=== PATIENT | male | born 1985 | race African-American/Black ===

== ENCOUNTER 2024-09-15 09:15 | Emergency (ER) | payer BC, MEDICAID ==
[~2024-09-15] VITALS: Ht 193 cm; Wt 89.5 kg
[2024-09-15 09:35] VITALS: BP 115/82; PULSE 99; RESP 18; TEMP 99; O2SAT 97
--- NOTE | 2024-09-15 10:01 | DVH ---
CLINICAL INFORMATION: 39 years old, Male; fall injury. TECHNIQUE: 3 views of the left elbow were obtained. COMPARISON: None FINDINGS: No acute fracture or dislocation. Chronic appearing ossific density along the volar aspect of the capitellum measuring up to 1.4 cm. Mild arthritic changes. There is ill-defined calcificati on distal to the medial epicondyle, may be dystrophic calcification or sequela of prior soft tissue i njury. No significant joint effusion. IMPRESSION: 1. No evidence of acute bony abnormality. 2. No significant joint effusion. 3. Chronic appearing ossific density along the volar aspect of the capitellum, may be sequela of old injury. Soft tissue calcifications also seen adjacent to the medial epicondyle may be sequelae of old injury. Correlate with clinical findings. If clinically indicated, MRI could be obtained to further evaluate.
--- NOTE | 2024-09-15 10:07 | ED.PDOC ---
Musculoskeletal HPI Comments A 39 YEAR OLD MALE PRESENTS TO THE ED WITH COMPLAINT OF LEFT ELBOW PAIN STATUS POST FALL. PATIENT STATES HE ACCIDENTALLY TRIPPED AND FELL AND LANDED ON HIS LEFT ELBOW. PATIENT REPORTS HE IS NOW EXPERIENCING LEFT ELBOW PAIN THAT IS WORSE WITH MOVEMENT. PT IS ABLE TO MOVE HIS LEFT ELBOW WITH SLIGHTLY DECREASING ROM. PATIENT DENIES HEAD INJURY, NECK INJURY, LOC, FEVER, CHILLS, SHORTNESS OF BREATH, CHEST PAIN, ABDOMINAL PAIN, NAUSEA, VOMITING, HEADACHE, OR OTHER COMPLAINTS. NO OTHER SYMPTOMS OR MODIFYING FACTORS AT THIS TIME. PATIENT IS ALERT, ORIENTED X 4, AND HAS STEADY GAIT. Chief Complaint: Upper Extremity Time Seen by MD: 09:24 Primary Care Provider: RC Giraldo Notes: Nurses Notes, Medications, Allergies Allergies: Coded Allergies: NO KNOWN ALLERGIES (Unverified , 04/14/11) Home Meds Active Scripts Ibuprofen (Ibuprofen) 800 Mg Tab, 1 TAB PO TID, #30 TAB Prov:BISHOPSEBASTIÁN JONES 09/15/24 Information Source: Patient Mode of Arrival: Ambulatory Location: Left Extremity Location: Elbow Timing: Hours Prehospital treatment: None Severity: Moderate Able to Move Extremity: Yes Bear Weight: Fully Pain: Moderate Mechanism: Blunt Trauma Circumstances: Fall Onset of Symptoms: After Trauma Symptoms: Pain DVT Risk Factors: NONE Last Tetanus: Unknown Associated signs and symptoms: Elbow pain Past Medical History Past Medical History (Other): LEFT ELBOW INJURY Surgical History: Denies all surgeries Surgical History (Other): LEFT ELBOW SURGERY Family History Family History: Reviewed,noncontributory to illness Social History Smoker: Non-Smoker Alcohol: Occasionally Drugs: Denies Drug Use Lives In: Home Constitutional: denies: chills, diaphoresis, fatigue, fever, malaise, sweats, weakness, others EENTM: denies: blurred vision, double vision, ear bleeding, ear discharge, ear drainage, ear pain, ear ringing, eye pain, eye redness, hearing loss, mouth pain, mouth swelling, nasal discharge, nose bleeding, nose congestion, nose pain, photophobia, tearing, throat pain, throat swelling, voice changes, others Respiratory: denies: cough, hemoptysis, orthopnea, SOB at rest, shortness of breath, SOB with excertion, stridor, wheezing, others Cardiovascular: denies: chest pain, dizzy spells, diaphoresis, Dyspnea on exertion, edema, irregular heart beat, left arm pain, lightheadedness, palpitations, PND, syncope, others Gastrointestinal: denies: abdomen distended, abdominal pain, blood streaked bowels, constipated, diarrhea, dysphagia, difficulty swallowing, hematemesis, melena, nausea, poor appetite, poor fluid intake, rectal bleeding, rectal pain, vomiting, others Genitourinary: denies: burning, dysuria, flank pain, frequency, hematuria, incontinence, penile discharge, penile sore, pain, testicle pain, testicle swelling, urgency, others Neurological: denies: dizziness, fainting, headache, left sided numbness, left sided weakness, numbness, paresthesia, pre-existing deficit, right sided num bness, right sided weakness, seizure, speech problems, tingling, tremors, weakness, others Musculoskeletal: reports: joint pain, joint swelling, others (LEFT ELBOW PAIN); denies: back pain, gout, muscle pain, muscle stiffness, neck pain Integumetry: denies: bruises, change in color, change in hair/nails, dryness, laceration, lesions, lumps, rash, wounds, others Allergic/Immunocompromised: denies: Difficulty Healing, Frequent Infections, Hives, Itching, others Hematologic/Lymphatic: denies: anemia, blood clots, easy bleeding, easy bruising, swollen glands, others Endocrine: denies: excessive hunger, excessive sweating, excessive thirst, excessive urination, flushing, intolerance to cold, intolerance to heat, unexpl ained weight gain, unexplained weight loss, others Psychiatric: denies: anxiety, bipolar disorder, depression, hopeless, panic disorder, schizophrenia, sleepless, suicidal, others All Other Systems: Reviewed and Negative Physical Exam General Appearance: No Apparent Distress, Normal HEENT: Normal ENT Inspection, PERRL/EOMI, Pharynx Normal, TMs Normal Neck: Full Range of Motion, Non-Tender, Normal, Normal Inspection Respiratory: Chest Non-Tender, Lungs Clear, No Accessory Muscle Use, No Respi ratory Distress, Normal Breath Sounds Cardiovascular: No Edema, No JVD, No Murmur, No Gallop, Normal Peripheral Pulses, Regular Rate/Rhythm Breast Exam: Deferred Gastrointestinal: No Organomegaly, Non Tender, No Pulsatile Mass, Normal Bowel Sounds, Soft Genitalia: Deferred Pelvic: Deferred Rectal: Deferred Extremities: Decreased range of motion (SLIGHTLY. ), No calf tenderness, Normal capillary refill, No pedal edema, Tender (AND MILD SWELLING ON LEFT ELBOW, NO BONY TENDERNESS AND DEFORMITY. ) Musculoskeletal : Apperance: Normal Neurologic: Alert, senior designer/art director II-XII nml as Tested, No Motor Deficits, Normal Affect, Normal Mood, No Sensory Deficits Cerebellar Function: Normal Reflexes: Normal Skin: Dry, Normal Color, Warm Peripheral Pulses: 2+ carotid (R), 2+ carotid (L), 2+ Radial (R), 2+ Radial (L) Lymphatic: No Adenopathy Was a procedure done? Was a procedure done?: No Differential Diagnosis EXT Differential Diagnosis: Fracture, Sprain, Dislocation, DJD, Contusion, Strain, Bursitis X-Ray, Labs, Meds, VS Vital Signs Date Time Temp Pulse Resp B/P (MAP) Pulse Ox O2 Delivery O2 Flow Rate FiO2 09/15/24 09:35 99 18 97 Room Air 09/15/24 09:35 99.0 99 18 115/82 (93) 97 99.0 09/15/24 09:25 99.0 99 18 115/82 (93) 97 CLINICAL INFORMATION: 39 years old, Male; fall injury. TECHNIQUE: 3 views of the left elbow were obtained. COMPARISON: None FINDINGS: No acute fracture or dislocation. Chronic appearing ossific density along the volar aspect of the capitellum measuring up to 1.4 cm. Mild arthritic changes. There is ill-defined calcification distal to the medial epicondyle, may be dystrophic calcification or sequela of prior soft tissue injury. No significant joint effusion. IMPRESSION: 1. No evidence of acute bony abnormality. 2. No significant joint effusion. 3. Chronic appearing ossific density along the volar aspect of the capitellum, may be sequela of old injury. Soft tissue calcifications also seen adjacent to the medial epicondyle may be sequelae of old injury. Correlate with clinical findings. If clinically indicated, MRI could be obtained to further evaluate. ATED BY: DAYDAY SAN DO DICTATED DATE/TIME: 09/15/24958 SIGNED BY: DAYDAY SAN DO SIGNED DATE/TIME: 09/15/24958 CC: X-Ray, Labs, Meds, VS Comment EXTERNAL MEDICAL RECORDS REVIEWED: [NONE] INDEPENDENT HISTORIANS: [NONE] SOCIAL DETERMINANTS OF HEALTH: [NONE] LABS ORDERED: NONE REVIEWED AND INTERPRETED RESULTS: NONE IMAGING ORDERED: XR ELBOW LT TREATMENTS ORDERED: LEFT ARM SLING PROCEDURES PERFORMED: NONE CRITICAL CARE TIME: NONE I HAVE DISCUSSED THE PATIENT WITH THE ATTENDING PHYSICIAN DR. MERYL JUNE AND HE AGREES WITH THE PATIENT'S PLAN OF CARE AND DISPOSITION. BASED ON HISTORY OF PRESENT ILLNESS, AND PHYSICAL EXAM, PATIENT WILL BE DISCHARGED HOME. SHARED DECISION MAKING: PATIENT INSTRUCTED TO FOLLOW UP WITH PRIMARY CARE PROVIDER IN 1-2 DAYS FOR RE-EVALUATION OF SYMPTOMS. PATIENT VERBALIZES UNDERSTANDING TO RETURN TO ED FOR NEW OR WORSENING SYMPTOMS OR IF FOLLOW UP WITH PCP CANNOT BE OBTAINED. PATIENT FEELS COMFORTABLE GOING HOME AT THIS TIME. ALL QUESTIONS ADDRESSED AT TIME OF DISCHARGE. Images Reviewed?: Images reviewed and evaluated by me Time of 1ST Reevaluation: 10:30 Reevaluation 1ST: Improved Patient Education/Counseling: Diagnosis, Treatment, Need For Follow Up Family Education/Counseling: Diagnosis, Treatment, Need For Follow Up Medical Screening: No EMC Exist At This Time Departure 1 Departure Time of Disposition: 10:30 Impression: Primary Impression: Sprain of left elbow Qualified Codes: S53.402A - Unspecified sprain of left elbow, initial encounter Additional Impression: Status post fall Disposition: 01 HOME / SELF CARE / HOMELESS Condition: Stable Additional Instructions: FOLLOW-UP WITH PCP IN 1 TO 2 DAYS. TAKE MEDICATIONS PRESCRIBED. RETURN TO ED FOR ANY NEW OR WORSENING SYMPTOMS. e-Prescriptions Ibuprofen (Ibuprofen) 800 Mg Tab 1 TAB PO TID, #30 TAB Prov: SEBASTIÁN ALAS 09/15/24 Discharged With: Self Critical Care Note Critical Care Time?: No Stability Stability form required: No I personally scribed for SEBASTIÁN ALAS ([email or web address]) on 09/15/24 at 10:07. Electronically submitted by Xavi Caceres ([email or web address]). SEBASTIÁN ALAS Sep 15, 2024 10:07
[2024-09-15] MEDS ORDERED: IBUP-1456 PO (10:14)
== END 2024-09-15 10:23 | disposition home or self-care (01) ==
LOC: ER 09:15
DX: S53.402A Unspecified sprain of left elbow, initial encounter (principal); Z79.1 Long term (current) use of non-steroidal anti-inflammatories (NSAID); W01.0XXA Fall on same level from slipping, tripping and stumbling without subsequent striking against object, initial encounter; Y93.89 Activity, other specified; Y92.89 Other specified places as the place of occurrence of the external cause; Y99.8 Other external cause status
CPT/HCPCS: 73080